=== PATIENT | female | born 1985 | race Caucasian/White ===

== ENCOUNTER 2016-06-24 23:56 | Inpatient (IN) | payer BC ==
[2016-06-25] MEDS ORDERED: LIDOCAINE 1% (PF) 10 MG/ML (30 ML SDV) SQ PRN (00:15)
[2016-06-25] MEDS ORDERED: OXYTOCIN 10 UNIT/ML 1 ML VIAL IM PRN (00:15)
[2016-06-25] MEDS ORDERED: TERBUTALINE 1 MG/ML VIAL SQ PRN (00:15)
[2016-06-25] MEDS ORDERED: METHYLERGONOVINE 0.2 MG/ML 1 ML AMP IM PRN (00:15)
[2016-06-25] MEDS ORDERED: CARBOPROST TROMETHAMINE 250 MCG/ML 1 ML AMP IM PRN (00:15)
[2016-06-25 00:40] VITALS: RESP 16
[2016-06-25] MEDS: LACTATED RINGERS 1,000 ML IV SCH ×2 (00:40→01:03)
[2016-06-25 00:47] LABS: Basophils # (A) 0.1 k/uL (0-0.2); Basophils % (A) 1 %; CH 28.1; CHCM 32.2; Eosinophils # (A) 0.3 k/uL (0-0.7); Eosinophils % (A) 3 %; HDW 2.91; HGB 11.2 gm/dL (11.4-16.0); Hypochromasia Slight; Luc # (Auto) 0.46; Luc % (Auto) 4; Lymphocytes # (A) 2.8 k/uL (1.0-4.8); Lymphocytes % (A) 27 %; MCH 28.1 pg (25.0-35.0); MCHC 32.1 g/dL (31.0-37.0); MCV 87.5 fL (80.0-100.0); Mean Platelet Volume 8.9; Monocytes # (A) 0.7 k/uL (0-1.0); Monocytes % (A) 7 %; Neutrophils # (A) 6.1 k/uL (1.3-7.7); Neutrophils % (A) 59 %; RBC 3.99 m/uL (3.80-5.40); RDW 14.4 % (11.5-15.5); WBC 10.4 k/uL (3.8-10.6); WBC (Perox) 11.03
--- NOTE | 2016-06-25 00:57 | P.HPOB ---
History of Present Illness H&P Date: 06/25/16 This is a 31-year-old white female 2 para 1001 EDC 06/23/2016 at 40-2/7 weeks' gestation. Patient presents with strong regular uterine contractions, and spontaneous amniorrhexis, clear fluid at 11:30 PM. Fetus is been active throughout the . Past medical history is negative. Current medications vitamins. ALLERGIES include peanuts trees and knots, no known medical ALLERGIES. Social history patient is a nonsmoker, she denies alcohol or drug use, she is . history group B strep cultures negative, blood type Rh+, remaining labs not available at time of this dictation. Patient states has been essentially unremarkable. 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 On exam this is a pleasant white female, she is 5 foot 3 inches, 170 pounds, blood pressure 136/81 on admission, patient is afebrile. The general physical exam is within normal limits. Cervix is 7 cm dilated, 100% effaced, -1 station , vertex presentation. There is a fore bag noted, this is removed for clear fluid. heart rate is in the 130s with frequent accelerations, consistent with reactive NST. Impression: 40-2/7 weeks intrauterine , active spontaneous labor. Plan: Epidural is being placed at this time per patient request. Close maternal and surveillance. Anticipate normal spontaneous vaginal delivery. Review of Systems Constitutional: Reports as per HPI Past Medical History Additional Past Medical History / Comment(s): Kidney stones, infertility History of Any Multi-Drug Resistant Organisms: None Reported Past Surgical History: Orthopedic Surgery Additional Past Surgical History / Comment(s): In vitro fertilization 2012, repair of lower extremity soft tissue laceration 2003 Past Anesthesia/Blood Transfusion Reactions: No Reported Reaction Past Psychological History: No Psychological Hx Reported Smoking Status: Never smoker Past Alcohol Use History: None Reported Past Drug Use History: None Reported - Past Family History Mother Family Medical History: No Reported History Medications and Allergies Home Medications Medication Instructions Recorded Confirmed Type Ibuprofen [Advil] 200 mg PO Q8HR PRN 09/27/14 09/28/14 History Minipill ( Control) 1 tab PO DAILY@1200 09/27/14 09/28/14 History Supplement For Milk Supply 1 tab PO DIRECTED 09/27/14 09/28/14 History Allergies Allergy/AdvReac Type Severity Reaction Status Date / Time peanut Allergy Severe Anaphylaxis Verified 09/28/14 08:12 tree nut [Nut] Allergy Severe Anaphylaxis Verified 09/28/14 08:12 Exam - Vital Signs Vital signs: Vital Signs Temp Pulse Resp BP 06/25/16 00:14 96.7 F L 80 16 136/81 Intake and Output 06/24/16 06/24/16 06/25/16 14:59 22:59 06:59 Other: Weight 77.111 kg Patient Weight 06/25/16 06:59 Weight 77.111 kg see dictation under HPI please. Results Result Diagrams: 06/25/16 00:34 Abnormal Lab Results - Last 24 Hours (Table) 06/25/16 Range/Units 00:34 Hgb 11.2 L (11.4-16.0) gm/dL Assessment and Plan Plan: Continue close maternal and surveillance. Epidural being placed per patient request. Anticipate normal spontaneous vaginal delivery. Time with Patient: Less than 30
[2016-06-25] MEDS ORDERED: BUPIVACAINE (PF) 0.25% 25 ML, fentaNYL (PF) 200 MCG in SODIUM CHLORIDE 0.9% 71 ML EPIDURAL ONE (01:12)
[2016-06-25] MEDS ORDERED: ZOLPIDEM 5 MG TAB PO PRN (02:14)
[2016-06-25] MEDS ORDERED: ACETAMINOPHEN TAB 325 MG TAB PO PRN (02:14)
[2016-06-25] MEDS ORDERED: WITCH HAZEL 1 EACH MED..PAD TOPICAL PRN (02:14)
[2016-06-25] MEDS ORDERED: diphenhydrAMINE 25 MG CAP PO PRN (02:14)
[2016-06-25] MEDS ORDERED: diphenhydrAMINE 50 MG/ML 1 ML VIAL IVP PRN ×2 (02:14)
[2016-06-25] MEDS ORDERED: diphenhydrAMINE 50 MG CAP PO PRN (02:14)
[2016-06-25] MEDS ORDERED: SIMETHICONE 80 MG CHEWABLE PO PRN (02:14)
[2016-06-25] MEDS ORDERED: BENZOCAINE/MENTHOL SPRAY 1 GM/SPRAY AEROSOL TOPICAL PRN (02:14)
[2016-06-25] MEDS ORDERED: LANOLIN CREAM 5 GM TUBE TOPICAL PRN (02:14)
[2016-06-25] MEDS ORDERED: HYDROCORTISONE 2.5% RECTAL CREAM 30 GM TUBE RECTAL PRN (02:14)
[2016-06-25] MEDS ORDERED: diphenhydrAMINE ELIXIR 25 MG/10 ML CUP PO PRN (02:14)
--- NOTE | 2016-06-25 02:14 | P.PROBDLV ---
Vaginal Delivery Note - . Vaginal Delivery Note: This is a 31-year-old white female 2 para 1001 EDC 06/23/2016 at 40-2/7 weeks' gestation. Patient presented this morning with strong regular uterine contractions and spontaneous amniorrhexis, clear fluid. Fetus has been active throughout the . unremarkable, group B strep cultures negative, blood type Rh+. Please see dictated history and physical for details. Artificial amniorrhexis of a fore bag revealed clear fluid. Patient requested epidural and this was placed without difficulties. She progressed well through the first stage of labor was judged to be completely dilated at 0143 hours. Perineal body was prepped and draped in the usual sterile fashion. With excellent maternal expulsive efforts, the head delivered occiput anterior and restituted accordingly. There was no nuchal cord noted. The right or anterior shoulder was gently delivered from underneath the pubic symphysis at which time the oropharynx, nasopharynx, and external nares were bulb suctioned on the perineal body. Patient was officially delivered of a liveborn male at 0152 hours. Umbilical cord was doubly clamped and ligated, he was handed to waiting nurses for evaluation where scores of 9 and 9 at one and 5 minutes respectively were given. Placenta was delivered spontaneously, it was inspected and noted to be intact with trivascular cord at 0155 hours. At this time the perineal body was redraped. Inspection of the cervix, vagina, perineum and periurethral areas revealed a spontaneous midline second-degree laceration. This was repaired in the usual fashion using 3-0 Vicryl suture. Fundus is massaged, firm and in the midline, symmetric, 18 week size. Estimated blood loss 300 mL's. All sponge needle and instrument counts are correct at the end of the procedure. Patient and her are allowed to begin the bonding experience in the LDR. 's weight 3145 g, or 6 lbs. 15 oz. They are requesting circumcision for their son.
[2016-06-25] MEDS ORDERED: OXYTOCIN 30 UNITS/500 ML NS 30 UNIT in SALINE 1 500ML.BAG IV SCH (02:15)
[2016-06-25] MEDS: IBUPROFEN 600 MG TAB PO PRN ×3 (04:42→20:32)
[2016-06-25] MEDS: SENNOSIDES-DOCUSATE SODIUM 1 EACH TAB PO SCH ×2 (09:51→20:31)
[2016-06-25] MEDS ORDERED: BUPIVACAINE (PF) 0.25% 30 ML VIAL ONE (12:47)
[2016-06-25] MEDS ORDERED: fentaNYL (PF) 50 MCG/ML 5 ML AMP ONE (12:47)
[2016-06-25] MEDS ORDERED: SODIUM CHLORIDE 0.9% 100 ML BAG ONE (12:47)
[2016-06-25] MEDS: Acetaminophen-Codeine 300-30mg TAB PO PRN (16:25)
[2016-06-26] MEDS: Acetaminophen-Codeine 300-30mg TAB PO PRN (03:02)
[2016-06-26 07:59] VITALS: BP 122/86; PULSE 72; TEMP 98.2
--- NOTE | 2016-06-26 08:52 | P.DS ---
Providers Date of admission: 06/25/16 00:10 Expected date of discharge: 06/26/16 Attending physician: Tisha Guerra Primary care physician: Tisha Guerra [facility] Course: This is a 31-year-old white female 2 para 1001 EDC 06/23/2016 at 40-2/7 weeks' gestation. Patient presented in active spontaneous labor with strong regular uterine contractions. was unremarkable, group B strep cultures negative, blood type O positive, please see my dictated H&P for details. Patient went on to swiftly deliver a liveborn male with scores of 9 and 9 at one and 5 minutes respectively. He weighed 3145 g or 6 lbs. 15 oz. There was a small second-degree perineal laceration easily repaired. Estimate a blood loss 300 mL's. Please see my dictated delivery note for details. This morning the patient is doing well. She is voiding, ambulating and passing flatus without difficulty. Vital signs are stable and she is afebrile. Patient has good pain relief utilizing Motrin products. There is minimal lochia rubra. Breast-feeding is going well. [place] circumcision has been performed. Patient is being discharged home in very good condition. She will follow-up in the office with me in 6 weeks. I have reminded her no intercourse, tampons or douching. She will use [id number] Motrin products, ibuprofen, 200 mg pills, 3 every 6 hours as needed for pain. I reminded her to call me with any fevers shakes or chills, foul smelling or copious lochia, with the passage of large blood clots, with any pain not alleviated by [id number] products, or indeed with any concerns. We have briefly reviewed contraceptive options and she and her will discuss this further. Patient Condition at Discharge: Good Plan - Discharge Summary Discharge Medication List Ibuprofen [Advil] 200 mg PO Q8HR PRN 09/27/14 [History] Minipill ( Control) 1 tab PO DAILY@1200 09/27/14 [History] Supplement For Milk Supply 1 tab PO DIRECTED 09/27/14 [History] Follow up Appointment(s)/Referral(s): Tisha Guerra MD [Primary Care Provider] - 6 Weeks Discharge Disposition: HOME SELF-CARE
[2016-06-26] MEDS: SENNOSIDES-DOCUSATE SODIUM 1 EACH TAB PO SCH (09:18)
[2016-06-26] MEDS: IBUPROFEN 600 MG TAB PO PRN (10:31)
== END 2016-06-26 12:30 | disposition home or self-care (01) | DRG 775 ==
LOC: FBPOP 23:56 → 4FBP 06-25 00:10
PROVIDERS: ADMIT Obstetrics & Gynecology; ATTEND Obstetrics & Gynecology
PROC: 10E0XZZ Delivery of Products of Conception, External Approach (ICD-10-PCS; principal; 2016-06-25)
PROC: 0KQM0ZZ Repair Perineum Muscle, Open Approach (ICD-10-PCS; 2016-06-25)
PROC: 00HU33Z Insertion of Infusion Device into Spinal Canal, Percutaneous Approach (ICD-10-PCS; 2016-06-25)
PROC: 3E0R3CZ (ICD-10-PCS; 2016-06-25)
DX: O70.1 Second degree perineal laceration during delivery (principal); Z37.0 Single live birth; Z91.010 Allergy to peanuts; Z3A.40 40 weeks gestation of pregnancy; Z79.899 Other long term (current) drug therapy
CPT/HCPCS: 59025; 84112; 85025; 88307; 99213

== ENCOUNTER 2019-09-29 06:58 | Outpatient (CLI) | payer BC, OTHER | END 2019-09-30 09:16 | disposition home or self-care (01) | LOC: LABWHC1 06:58 | PROVIDERS: ATTEND Family Medicine | DX: Z53.9 Procedure and treatment not carried out, unspecified reason (principal) ==

== ENCOUNTER → 2020-01-20 | Outpatient (CLI) | payer OTHER | END | disposition home or self-care (01) | LOC: LABWHC1 10:54 | PROVIDERS: ATTEND Family Medicine | DX: Z20.828 Contact with and (suspected) exposure to other viral communicable diseases (principal) | CPT/HCPCS: U0003; C9803 ==

== ENCOUNTER → 2024-01-23 | Outpatient (CLI) | payer OTHER ==
--- NOTE | 2024-01-24 18:55 | MM ---
Reason for Exam: Screening (asymptomatic). Baseline mammogram. Patient History: Menarche at age 17. First Full-Term at age 30. Paternal grandmother had breast cancer. Last menstrual period: 01/18/2024 Risk Values: Faith 5 year model risk: 0.3%. NCI Lifetime model risk: 10.3%. Prior Study Comparison: Patient's first Mammogram. No prior studies available for comparison. Tissue Density: There are scattered areas of fibroglandular density. Findings: Analyzed By CAD. Asymmetric density central outer aspect of the right breast CC view and 2 areas of asymmetric density superiorly left MLO view middle depth may represent superimposition shadow but further evaluation is recommended. Otherwise, no suspicious microcalcification or other discrete abnormality is seen. Overall Assessment: Incomplete: need additional imaging evaluation, BI-RAD 0 Management: Special View Mammogram of both breasts. . [facility] will attempt to contact patient to return for supplemental views and ultrasound if indicated. [facility], , 01/24/2024 6:52 PM. Electronically signed and approved by: Ami Christian M.D. Radiologist
== END | disposition home or self-care (01) ==
LOC: RADMAMWWP 09:05
PROVIDERS: ATTEND Family Medicine
DX: Z12.31 Encounter for screening mammogram for malignant neoplasm of breast
CPT/HCPCS: 77067

== ENCOUNTER → 2024-01-31 | Outpatient (CLI) | payer OTHER ==
--- NOTE | 2024-01-31 10:45 | MM ---
Reason for Exam: Additional evaluation requested from abnormal screening. Last screening mammogram was performed less than 1 month ago. Patient History: Menarche at age 17. First Full-Term at age 30. Paternal grandmother had breast cancer. Last menstrual period: 01/14/2024 Risk Values: Faith 5 year model risk: 0.3%. NCI Lifetime model risk: 10.3%. Prior Study Comparison: 01/23/2024 Bilateral MG screening mammo w CAD, [facility]. Tissue Density: There are scattered areas of fibroglandular density. Findings: Analyzed By CAD. Area of concern/asymmetry compresses out on spot compression imaging. No suspicious masses, calcifications or distortions. Overall Assessment: Negative, BI-RAD 1 Management: Screening Mammogram of both breasts in 1 year. Results were given to the patient verbally at the time of exam. Patient should continue monthly self-breast exams. A clinical breast exam by your physician is recommended on an annual basis. This exam should not preclude additional follow-up of suspicious palpable abnormalities. Note on Faith scores and lifetime risk: 1. A Faith score greater than 3% is considered moderate risk. If this is the case, consider specialist referral to assess eligibility for a risk reducing agent. 2. If overall lifetime risk for the development of breast cancer is 20% or higher, the patient may qualify for future screening with alternating mammogram and breast MRI. [facility], , 01/31/2024 10:28 AM. Electronically signed and approved by: Bronson Kumar DO
== END | disposition home or self-care (01) ==
LOC: RADMAMWWP 09:56
PROVIDERS: ATTEND Family Medicine
CPT/HCPCS: 77062; 77066